=== PATIENT | female | born 1995 | race Two or more races ===

== ENCOUNTER 2025-05-08 06:55 | Day surgery (SDC) | payer OTHER ==
[2025-04-07 09:20] VITALS: BMI 28.3
[2025-05-08] MEDS ORDERED: ONDANSETRON 4 MG/2 ML VIAL ONE (11:17)
[2025-05-08] MEDS ORDERED: MIDAZOLAM HCL 2 MG/2 ML SINGLE DOSE VIAL ONE (11:17)
[2025-05-08] MEDS ORDERED: PROPOFOL 20 ML ONE (11:17)
[2025-05-08] MEDS ORDERED: DEXAMETHASONE SOD PHOSPHATE 4 MG/1 ML VIAL ONE (11:17)
[2025-05-08] MEDS ORDERED: ONDANSETRON 4 MG/2 ML VIAL IVPUSH PRN (11:26)
[2025-05-08] MEDS ORDERED: LACTATED RINGERS SOLUTION 1,000 ML IV SCH (11:30)
[2025-05-08 14:16] VITALS: RESP 20
[2025-05-08 15:20] VITALS: BP 111/71; PULSE 70; TEMP 98.4
== END 2025-05-08 15:29 | disposition home or self-care (01) ==
LOC: JASU-SURG 06:55
PROVIDERS: ATTEND Obstetrics & Gynecology
PROC: 0UBC8ZX Excision of Cervix, Via Natural or Artificial Opening Endoscopic, Diagnostic (ICD-10-PCS; principal; 2025-05-08 10:00)
DX: N87.1 Moderate cervical dysplasia (principal)
CPT/HCPCS: 81025; 86850; 86900; 86901; 88305-TC; 88307-TC; 88342-TC; 94760